=== PATIENT | male | born 1940 | race Caucasian/White ===

== ENCOUNTER 2021-07-07 15:02 | Inpatient (IN) ==
[2021-07-07] MEDS ORDERED: D5% in Water 1,000 ML IVC PRN (17:12)
[2021-07-07] MEDS ORDERED: Dextrose Gel 15 GM/37.5 ML TUBE PO PRN ×2 (17:12)
[2021-07-07] MEDS ORDERED: *HR* Dextrose 50 % in Water (Syg) 50 ML SYRINGE IVP PRN (17:12)
[2021-07-07] MEDS: Insulin LISPRO 300 UNITS/3 ML VIAL SUBQ SCH (23:45)
[2021-07-08 04:33] LABS: Bilirubin,Urine Negative (Negative); Blood,Urine Moderate (Negative); Clarity,Urine Clear (Clear); Color,Urine Yellow (Yellow); Glucose,Urine (UA) 100 mg/dL (Normal); Ketones,Urine Negative (Negative); Leukocyte Esterase,Urine Small (Negative); Nitrite,Urine Positive (Negative); PH,Urine 5.5 pH Units (5.0-8.0); Protein,Urine 30 mg/dL (Neg-Trace); Specific Gravity,Urine >= 1.030 (1.010-1.025); Urobilinogen,Urine Normal (Normal)
[2021-07-08 04:39] LABS: Bacteria,Urine Many per hpf (None-Few); RBC,Urine 0-3 per hpf (0-3); Squamous Epithelial Cell,Urine Few per hpf (None-Few); WBC,Urine 50-100 per hpf (0-3)
[2021-07-08 06:12] LABS: Basophils % 0.2 %; Eosinophils # 0.2 K/mcL (0.0-0.6); Eosinophils % 0.8 %; Hematocrit 32.1 % (37.5-50.1); Hemoglobin 9.9 g/dL (12.9-16.9); Immature Granulocytes % 0.2 % (0-4); Lymphocytes % 82.4 %; Mean Corpuscular HGB Conc 30.8 g/dL (31.6-35.5); Mean Corpuscular Hemoglobin 28.3 pg (28.0-33.3); Mean Corpuscular Volume 91.7 fL (83.0-100.0); Monocytes # 0.2 K/mcL (0.0-1.3); Monocytes % 0.9 %; Neutrophils # 3.5 K/mcL (1.6-8.9); Platelet Count 147 K/mcL (140-400); Red Cell Distribution Width 15.8 % (11.5-14.5); Segmented Neutrophils % 15.5 %; White Blood Count 22.5 K/mcL (4.3-11.1)
[2021-07-08 06:13] LABS: Basophils # 0.1 K/mcL (0.0-0.2); Lymphocytes # 18.5 K/mcL (0.6-4.6)
[2021-07-08 06:28] LABS: BUN/Creatinine Ratio 53 (6-26); Blood Urea Nitrogen 32 mg/dL (8-23); Calcium 8.5 mg/dL (8.6-10.3); Carbon Dioxide 31 mEq/L (23-29); Chloride 101 mEq/L (98-107); Glucose 257 mg/dL (70-105); Osmolality,Calculated 308 (280-300); Sodium 141 mEq/L (136-145); eGFR For African Americans > 60 (> 60); eGFR For Non-African Americans > 60 (> 60)
[2021-07-08] MEDS ORDERED: *HR* Enoxaparin 40 MG/0.4 ML SYRINGE SQ SCH (07:00)
[2021-07-08] MEDS: ZEAXANTHIN PO SCH (07:42)
[2021-07-08] MEDS: GARLIC 1000 MG PO SCH (07:42)
[2021-07-08] MEDS: (Omega-3/Dha/Epa/Fish Oil) PO SCH (07:42)
[2021-07-08] MEDS: [UNRECOGNIZED DRUG - OTHER] PO SCH (07:42)
[2021-07-08] MEDS: ZINC ACETATE 50 MG PO SCH (07:42)
[2021-07-08] MEDS: Insulin LISPRO 300 UNITS/3 ML VIAL SUBQ SCH ×4 (07:45→20:51)
[2021-07-08] MEDS ORDERED: lisinopriL 20 MG TABLET PO SCH (09:00)
[2021-07-08] MEDS ORDERED: Magnesium Oxide 400 MG TABLET PO SCH (09:00)
[2021-07-08] MEDS ORDERED: Aspirin Enteric Coated 81 MG Tablet PO SCH (09:00)
[2021-07-08] MEDS ORDERED: Lactobacillus 1 EACH CAP.SPRINK PO SCH (09:00)
[2021-07-08] MEDS: Cholecalciferol (D-3) 1,000 UNIT (25MCG) TABLET PO SCH (10:01)
[2021-07-08] MEDS: Multivit/Ca/Min/Fe/FA 1 TAB TABLET PO SCH (10:01)
[2021-07-08] MEDS: Vitamin E 200 UNIT (90MG) CAPSULE PO SCH (10:02)
[2021-07-08] MEDS: *HR* SitaGLIPtin 100 MG TABLET PO SCH (10:02)
[2021-07-08] MEDS: Aspirin Enteric Coated 81 MG Tablet PO SCH (10:02)
[2021-07-08] MEDS: Ascorbic Acid 500 MG TABLET PO SCH (10:02)
[2021-07-08] MEDS: Magnesium Oxide 400 MG TABLET PO SCH ×2 (10:03→21:46)
[2021-07-08] MEDS: Apixaban 5 MG TABLET PO SCH ×2 (10:03→21:46)
[2021-07-08] MEDS: Loratadine 10 MG TABLET PO SCH (10:04)
[2021-07-08] MEDS: *HR* Glimepiride 4 MG TABLET PO SCH ×2 (10:04→17:29)
[2021-07-08] MEDS: Lactobacillus 1 EACH CAP.SPRINK PO SCH ×2 (10:04→21:46)
[2021-07-08] MEDS: Fenofibrate 54 MG TABLET PO SCH (10:04)
[2021-07-08] MEDS: *HR* Pioglitazone 15 MG TABLET PO SCH (10:11)
[2021-07-08] MEDS: cefTRIAXone 1,000 MG in 0.9 % Sodium Chloride 10 ML IVP SCH (10:13)
[2021-07-08 12:10] LABS: Estimated Average Glucose 186 mg/dl; Hemoglobin A1C 8.1 %
[2021-07-08] MEDS ORDERED: Melatonin 3 MG TABLET PO ONE (20:50)
[2021-07-09] MEDS ORDERED: Haloperidol Lactate 5 MG/ML VIAL IVP ONE (00:16)
[2021-07-09] MEDS: Aspirin Enteric Coated 81 MG Tablet PO SCH (07:34)
[2021-07-09] MEDS: Ascorbic Acid 500 MG TABLET PO SCH (07:34)
[2021-07-09] MEDS: *HR* Glimepiride 4 MG TABLET PO SCH ×2 (07:34→16:14)
[2021-07-09] MEDS: Vitamin E 200 UNIT (90MG) CAPSULE PO SCH (07:34)
[2021-07-09] MEDS: Cholecalciferol (D-3) 1,000 UNIT (25MCG) TABLET PO SCH (07:34)
[2021-07-09] MEDS: Magnesium Oxide 400 MG TABLET PO SCH ×2 (07:35→20:53)
[2021-07-09] MEDS: Fenofibrate 54 MG TABLET PO SCH (07:35)
[2021-07-09] MEDS: Loratadine 10 MG TABLET PO SCH (07:36)
[2021-07-09] MEDS: Apixaban 5 MG TABLET PO SCH ×2 (07:36→20:52)
[2021-07-09] MEDS: *HR* SitaGLIPtin 100 MG TABLET PO SCH (07:36)
[2021-07-09] MEDS: *HR* Pioglitazone 15 MG TABLET PO SCH (07:36)
[2021-07-09] MEDS: cefTRIAXone 1,000 MG in 0.9 % Sodium Chloride 10 ML IVP SCH (07:37)
[2021-07-09] MEDS: Lactobacillus 1 EACH CAP.SPRINK PO SCH ×2 (07:37→20:51)
[2021-07-09] MEDS: Multivit/Ca/Min/Fe/FA 1 TAB TABLET PO SCH (07:37)
[2021-07-09] MEDS: (Omega-3/Dha/Epa/Fish Oil) PO SCH (07:39)
[2021-07-09] MEDS: GARLIC 1000 MG PO SCH (07:39)
[2021-07-09] MEDS: [UNRECOGNIZED DRUG - OTHER] PO SCH (07:39)
[2021-07-09] MEDS: ZEAXANTHIN PO SCH (07:39)
[2021-07-09] MEDS: ZINC ACETATE 50 MG PO SCH (07:39)
[2021-07-09] MEDS: Insulin LISPRO 300 UNITS/3 ML VIAL SUBQ SCH ×4 (07:52→20:52)
[2021-07-09 11:59] LABS: Basophils % 0.2 %; Eosinophils % 0.6 %; Hematocrit 32.9 % (37.5-50.1); Hemoglobin 10.1 g/dL (12.9-16.9); Immature Granulocytes % 0.3 % (0-4); Lymphocytes # 20.2 K/mcL (0.6-4.6); Lymphocytes % 79.8 %; Mean Corpuscular HGB Conc 30.7 g/dL (31.6-35.5); Mean Corpuscular Hemoglobin 28.1 pg (28.0-33.3); Mean Corpuscular Volume 91.6 fL (83.0-100.0); Mean Platelet Volume 10.5 fL (9.4-12.4); Monocytes # 0.2 K/mcL (0.0-1.3); Monocytes % 0.6 %; Neutrophils # 4.7 K/mcL (1.6-8.9); Platelet Count 159 K/mcL (140-400); Red Blood Count 3.59 M/mcL (4.19-5.50); Red Cell Distribution Width 15.6 % (11.5-14.5); Segmented Neutrophils % 18.5 %; White Blood Count 25.3 K/mcL (4.3-11.1)
[2021-07-09 12:09] LABS: Basophils # 0.1 K/mcL (0.0-0.2); Eosinophils # 0.2 K/mcL (0.0-0.6)
[2021-07-09 12:26] LABS: BUN/Creatinine Ratio 46 (6-26); Blood Urea Nitrogen 33 mg/dL (8-23); Carbon Dioxide 30 mEq/L (23-29); Chloride 99 mEq/L (98-107); Glucose 339 mg/dL (70-105); Osmolality,Calculated 303 (280-300); Potassium 3.8 mEq/L (3.5-5.1); Sodium 136 mEq/L (136-145); eGFR For African Americans > 60 (> 60); eGFR For Non-African Americans > 60 (> 60)
[2021-07-09] MEDS ORDERED: Carbamide Peroxide 150 DROP/15 ML BOTTLE LEFT EAR ONE (13:00)
[2021-07-09] MEDS: Acetaminophen 325 MG TABLET PO PRN (21:57)
[2021-07-10] MEDS ORDERED: *HR* LORazepam 2 MG/ML VIAL IVP ONE ×2 (01:42→21:54)
[2021-07-10] MEDS: *HR* Pioglitazone 15 MG TABLET PO SCH (08:49)
[2021-07-10] MEDS: cefTRIAXone 1,000 MG in 0.9 % Sodium Chloride 10 ML IVP SCH (08:49)
[2021-07-10] MEDS: Vitamin E 200 UNIT (90MG) CAPSULE PO SCH (08:49)
[2021-07-10] MEDS: Aspirin Enteric Coated 81 MG Tablet PO SCH (08:50)
[2021-07-10] MEDS: Acetaminophen 325 MG TABLET PO PRN ×2 (08:50→19:53)
[2021-07-10] MEDS: Loratadine 10 MG TABLET PO SCH (08:50)
[2021-07-10] MEDS: *HR* SitaGLIPtin 100 MG TABLET PO SCH (08:50)
[2021-07-10] MEDS: Apixaban 5 MG TABLET PO SCH ×2 (08:50→19:52)
[2021-07-10] MEDS: Cholecalciferol (D-3) 1,000 UNIT (25MCG) TABLET PO SCH (08:50)
[2021-07-10] MEDS: Fenofibrate 54 MG TABLET PO SCH (08:50)
[2021-07-10] MEDS: *HR* Glimepiride 4 MG TABLET PO SCH ×2 (08:50→16:33)
[2021-07-10] MEDS: Lactobacillus 1 EACH CAP.SPRINK PO SCH ×2 (08:50→19:52)
[2021-07-10] MEDS: Multivit/Ca/Min/Fe/FA 1 TAB TABLET PO SCH (08:50)
[2021-07-10] MEDS: Ascorbic Acid 500 MG TABLET PO SCH (08:51)
[2021-07-10] MEDS: GARLIC 1000 MG PO SCH (08:51)
[2021-07-10] MEDS: ZINC ACETATE 50 MG PO SCH (08:51)
[2021-07-10] MEDS: Magnesium Oxide 400 MG TABLET PO SCH ×2 (08:51→19:53)
[2021-07-10] MEDS: (Omega-3/Dha/Epa/Fish Oil) PO SCH (08:51)
[2021-07-10] MEDS: [UNRECOGNIZED DRUG - OTHER] PO SCH (08:51)
[2021-07-10] MEDS: ZEAXANTHIN PO SCH (08:51)
[2021-07-10] MEDS: Insulin LISPRO 300 UNITS/3 ML VIAL SUBQ SCH ×4 (08:52→19:58)
[2021-07-10] MEDS: Fluticasone Propionate Nasal 50 MCG/SPRAY BOTTLE NS SCH ×2 (12:04→17:19)
[2021-07-10 13:18] LABS: Basophils % 0.2 %; Eosinophils # 0.2 K/mcL (0.0-0.6); Eosinophils % 0.9 %; Hematocrit 33.3 % (37.5-50.1); Hemoglobin 10.4 g/dL (12.9-16.9); Immature Granulocytes % 0.6 % (0-4); Lymphocytes # 14.5 K/mcL (0.6-4.6); Lymphocytes % 76.2 %; Mean Corpuscular HGB Conc 31.2 g/dL (31.6-35.5); Mean Corpuscular Hemoglobin 28.8 pg (28.0-33.3); Mean Corpuscular Volume 92.2 fL (83.0-100.0); Mean Platelet Volume 10.8 fL (9.4-12.4); Monocytes # 0.2 K/mcL (0.0-1.3); Platelet Count 134 K/mcL (140-400); Red Blood Count 3.61 M/mcL (4.19-5.50); Red Cell Distribution Width 15.7 % (11.5-14.5); Segmented Neutrophils % 21.1 %
[2021-07-10 13:37] LABS: BUN/Creatinine Ratio 45 (6-26); Blood Urea Nitrogen 30 mg/dL (8-23); Calcium 9.4 mg/dL (8.6-10.3); Carbon Dioxide 33 mEq/L (23-29); Chloride 98 mEq/L (98-107); Glucose 307 mg/dL (70-105); Osmolality,Calculated 304 (280-300); Potassium 3.8 mEq/L (3.5-5.1); Sodium 138 mEq/L (136-145); eGFR For African Americans > 60 (> 60); eGFR For Non-African Americans > 60 (> 60)
[2021-07-11 05:09] LABS: Basophils % 0.2 %; Eosinophils # 0.2 K/mcL (0.0-0.6); Eosinophils % 1.2 %; Hematocrit 33.2 % (37.5-50.1); Hemoglobin 10.2 g/dL (12.9-16.9); Immature Granulocytes % 0.8 % (0-4); Lymphocytes # 11.9 K/mcL (0.6-4.6); Lymphocytes % 76.3 %; Mean Corpuscular HGB Conc 30.7 g/dL (31.6-35.5); Mean Corpuscular Hemoglobin 28.4 pg (28.0-33.3); Mean Corpuscular Volume 92.5 fL (83.0-100.0); Mean Platelet Volume 11.3 fL (9.4-12.4); Monocytes # 0.2 K/mcL (0.0-1.3); Monocytes % 1.5 %; Neutrophils # 3.1 K/mcL (1.6-8.9); Nucleated Red Blood Cells 0.1 /100 WBC (0); Platelet Count 118 K/mcL (140-400); Red Blood Count 3.59 M/mcL (4.19-5.50); Red Cell Distribution Width 15.5 % (11.5-14.5); White Blood Count 15.6 K/mcL (4.3-11.1)
[2021-07-11 05:14] LABS: Platelet Estimate Slight Decrease (Normal)
[2021-07-11 05:21] LABS: BUN/Creatinine Ratio 43 (6-26); Blood Urea Nitrogen 26 mg/dL (8-23); Calcium 8.8 mg/dL (8.6-10.3); Carbon Dioxide 31 mEq/L (23-29); Chloride 102 mEq/L (98-107); Glucose 234 mg/dL (70-105); Osmolality,Calculated 306 (280-300); Potassium 3.7 mEq/L (3.5-5.1); Sodium 142 mEq/L (136-145); eGFR For African Americans > 60 (> 60); eGFR For Non-African Americans > 60 (> 60)
[2021-07-11] MEDS: Fluticasone Propionate Nasal 50 MCG/SPRAY BOTTLE NS SCH (08:36)
[2021-07-11] MEDS: Fenofibrate 54 MG TABLET PO SCH (08:36)
[2021-07-11] MEDS: Vitamin E 200 UNIT (90MG) CAPSULE PO SCH (08:37)
[2021-07-11] MEDS: *HR* Pioglitazone 15 MG TABLET PO SCH (08:38)
[2021-07-11] MEDS: *HR* SitaGLIPtin 100 MG TABLET PO SCH (08:39)
[2021-07-11] MEDS: *HR* Glimepiride 4 MG TABLET PO SCH ×2 (08:39→16:04)
[2021-07-11] MEDS: Apixaban 5 MG TABLET PO SCH ×2 (08:39→19:30)
[2021-07-11] MEDS: Loratadine 10 MG TABLET PO SCH (08:40)
[2021-07-11] MEDS: Cholecalciferol (D-3) 1,000 UNIT (25MCG) TABLET PO SCH (08:40)
[2021-07-11] MEDS: Ascorbic Acid 500 MG TABLET PO SCH (08:40)
[2021-07-11] MEDS: Magnesium Oxide 400 MG TABLET PO SCH ×2 (08:40→19:52)
[2021-07-11] MEDS: Insulin LISPRO 300 UNITS/3 ML VIAL SUBQ SCH ×4 (08:41→19:54)
[2021-07-11] MEDS: Aspirin Enteric Coated 81 MG Tablet PO SCH (08:41)
[2021-07-11] MEDS: Multivit/Ca/Min/Fe/FA 1 TAB TABLET PO SCH (08:41)
[2021-07-11] MEDS: Lactobacillus 1 EACH CAP.SPRINK PO SCH ×2 (08:41→19:53)
[2021-07-11] MEDS: cefTRIAXone 1,000 MG in 0.9 % Sodium Chloride 10 ML IVP SCH (08:42)
[2021-07-11] MEDS: (Omega-3/Dha/Epa/Fish Oil) PO SCH (08:46)
[2021-07-11] MEDS: [UNRECOGNIZED DRUG - OTHER] PO SCH (08:46)
[2021-07-11] MEDS: GARLIC 1000 MG PO SCH (08:46)
[2021-07-11] MEDS: ZINC ACETATE 50 MG PO SCH (08:46)
[2021-07-11] MEDS: ZEAXANTHIN PO SCH (08:46)
[2021-07-11] MEDS: Acetaminophen 325 MG TABLET PO PRN (20:57)
[2021-07-12] MEDS: Acetaminophen 325 MG TABLET PO PRN ×2 (02:57→20:07)
[2021-07-12 04:42] LABS: Basophils % 0.3 %; Eosinophils # 0.2 K/mcL (0.0-0.6); Eosinophils % 1.6 %; Hematocrit 32.3 % (37.5-50.1); Hemoglobin 9.9 g/dL (12.9-16.9); Immature Granulocytes % 1.4 % (0-4); Lymphocytes # 9.9 K/mcL (0.6-4.6); Mean Corpuscular HGB Conc 30.7 g/dL (31.6-35.5); Mean Corpuscular Hemoglobin 27.9 pg (28.0-33.3); Monocytes # 0.2 K/mcL (0.0-1.3); Monocytes % 1.7 %; Nucleated Red Blood Cells 0.4 /100 WBC (0); Platelet Count 118 K/mcL (140-400); Red Blood Count 3.55 M/mcL (4.19-5.50); Red Cell Distribution Width 15.8 % (11.5-14.5); White Blood Count 13.5 K/mcL (4.3-11.1)
[2021-07-12 04:46] LABS: Platelet Estimate Slight Decrease (Normal)
[2021-07-12] MEDS: Vitamin E 200 UNIT (90MG) CAPSULE PO SCH (09:38)
[2021-07-12] MEDS: Lactobacillus 1 EACH CAP.SPRINK PO SCH ×2 (09:38→20:06)
[2021-07-12] MEDS: Multivit/Ca/Min/Fe/FA 1 TAB TABLET PO SCH (09:38)
[2021-07-12] MEDS: *HR* SitaGLIPtin 100 MG TABLET PO SCH (09:38)
[2021-07-12] MEDS: Fenofibrate 54 MG TABLET PO SCH (09:38)
[2021-07-12] MEDS: Magnesium Oxide 400 MG TABLET PO SCH ×2 (09:38→20:06)
[2021-07-12] MEDS: *HR* Pioglitazone 15 MG TABLET PO SCH (09:39)
[2021-07-12] MEDS: [UNRECOGNIZED DRUG - OTHER] PO SCH (09:39)
[2021-07-12] MEDS: Loratadine 10 MG TABLET PO SCH (09:39)
[2021-07-12] MEDS: (Omega-3/Dha/Epa/Fish Oil) PO SCH (09:39)
[2021-07-12] MEDS: Aspirin Enteric Coated 81 MG Tablet PO SCH (09:39)
[2021-07-12] MEDS: ZEAXANTHIN PO SCH (09:39)
[2021-07-12] MEDS: Fluticasone Propionate Nasal 50 MCG/SPRAY BOTTLE NS SCH (09:39)
[2021-07-12] MEDS: Cholecalciferol (D-3) 1,000 UNIT (25MCG) TABLET PO SCH (09:39)
[2021-07-12] MEDS: Apixaban 5 MG TABLET PO SCH ×2 (09:39→20:06)
[2021-07-12] MEDS: *HR* Glimepiride 4 MG TABLET PO SCH ×2 (09:39→17:25)
[2021-07-12] MEDS: Ascorbic Acid 500 MG TABLET PO SCH (09:39)
[2021-07-12] MEDS: cefTRIAXone 1,000 MG in 0.9 % Sodium Chloride 10 ML IVP SCH (09:40)
[2021-07-12] MEDS: ZINC ACETATE 50 MG PO SCH (09:40)
[2021-07-12] MEDS: Insulin LISPRO 300 UNITS/3 ML VIAL SUBQ SCH ×4 (09:40→20:05)
[2021-07-12] MEDS: GARLIC 1000 MG PO SCH (09:40)
[2021-07-13] MEDS: *HR* SitaGLIPtin 100 MG TABLET PO SCH (08:25)
[2021-07-13] MEDS: Loratadine 10 MG TABLET PO SCH (08:25)
[2021-07-13] MEDS: *HR* Glimepiride 4 MG TABLET PO SCH ×2 (08:25→16:49)
[2021-07-13] MEDS: Lactobacillus 1 EACH CAP.SPRINK PO SCH ×2 (08:25→21:59)
[2021-07-13] MEDS: Ascorbic Acid 500 MG TABLET PO SCH (08:25)
[2021-07-13] MEDS: Vitamin E 200 UNIT (90MG) CAPSULE PO SCH (08:25)
[2021-07-13] MEDS: *HR* Pioglitazone 15 MG TABLET PO SCH (08:26)
[2021-07-13] MEDS: Aspirin Enteric Coated 81 MG Tablet PO SCH (08:26)
[2021-07-13] MEDS: Magnesium Oxide 400 MG TABLET PO SCH ×2 (08:26→22:02)
[2021-07-13] MEDS: Cholecalciferol (D-3) 1,000 UNIT (25MCG) TABLET PO SCH (08:26)
[2021-07-13] MEDS: Apixaban 5 MG TABLET PO SCH ×2 (08:26→22:00)
[2021-07-13] MEDS: Multivit/Ca/Min/Fe/FA 1 TAB TABLET PO SCH (08:26)
[2021-07-13] MEDS: Fenofibrate 54 MG TABLET PO SCH (08:26)
[2021-07-13] MEDS: (Omega-3/Dha/Epa/Fish Oil) PO SCH (08:27)
[2021-07-13] MEDS: [UNRECOGNIZED DRUG - OTHER] PO SCH (08:27)
[2021-07-13] MEDS: ZEAXANTHIN PO SCH (08:27)
[2021-07-13] MEDS: ZINC ACETATE 50 MG PO SCH (08:27)
[2021-07-13] MEDS: GARLIC 1000 MG PO SCH (08:28)
[2021-07-13] MEDS: cefTRIAXone 1,000 MG in 0.9 % Sodium Chloride 10 ML IVP SCH (08:28)
[2021-07-13] MEDS: Insulin LISPRO 300 UNITS/3 ML VIAL SUBQ SCH ×3 (08:34→16:14)
[2021-07-13] MEDS: Fluticasone Propionate Nasal 50 MCG/SPRAY BOTTLE NS SCH (08:34)
[2021-07-13] MEDS: Melatonin 3 MG TABLET PO SCH (21:59)
[2021-07-13] MEDS: Acetaminophen 325 MG TABLET PO PRN (22:02)
[2021-07-14] MEDS: Insulin LISPRO 300 UNITS/3 ML VIAL SUBQ SCH ×5 (04:13→19:38)
[2021-07-14] MEDS: cefTRIAXone 1,000 MG in 0.9 % Sodium Chloride 10 ML IVP SCH (08:49)
[2021-07-14] MEDS: Apixaban 5 MG TABLET PO SCH ×2 (08:52→19:34)
[2021-07-14] MEDS: Ascorbic Acid 500 MG TABLET PO SCH (08:52)
[2021-07-14] MEDS: Loratadine 10 MG TABLET PO SCH (08:53)
[2021-07-14] MEDS: Cholecalciferol (D-3) 1,000 UNIT (25MCG) TABLET PO SCH (08:53)
[2021-07-14] MEDS: Magnesium Oxide 400 MG TABLET PO SCH ×2 (08:53→19:33)
[2021-07-14] MEDS: Multivit/Ca/Min/Fe/FA 1 TAB TABLET PO SCH (08:53)
[2021-07-14] MEDS: Fenofibrate 54 MG TABLET PO SCH (08:53)
[2021-07-14] MEDS: Vitamin E 200 UNIT (90MG) CAPSULE PO SCH (08:53)
[2021-07-14] MEDS: *HR* Glimepiride 4 MG TABLET PO SCH ×2 (08:53→17:19)
[2021-07-14] MEDS: Lactobacillus 1 EACH CAP.SPRINK PO SCH ×2 (08:53→19:34)
[2021-07-14] MEDS: Aspirin Enteric Coated 81 MG Tablet PO SCH (08:53)
[2021-07-14] MEDS: *HR* SitaGLIPtin 100 MG TABLET PO SCH (08:53)
[2021-07-14] MEDS: *HR* Pioglitazone 15 MG TABLET PO SCH (08:53)
[2021-07-14] MEDS: GARLIC 1000 MG PO SCH (08:54)
[2021-07-14] MEDS: ZEAXANTHIN PO SCH (08:54)
[2021-07-14] MEDS: ZINC ACETATE 50 MG PO SCH (08:54)
[2021-07-14] MEDS: [UNRECOGNIZED DRUG - OTHER] PO SCH (08:54)
[2021-07-14] MEDS: (Omega-3/Dha/Epa/Fish Oil) PO SCH (08:54)
[2021-07-14] MEDS: Fluticasone Propionate Nasal 50 MCG/SPRAY BOTTLE NS SCH (08:57)
[2021-07-14] MEDS: Melatonin 3 MG TABLET PO SCH (19:34)
[2021-07-14] MEDS: Acetaminophen 325 MG TABLET PO PRN (21:23)
[2021-07-15 06:00] LABS: Basophils # 0.1 K/mcL (0.0-0.2); Basophils % 0.4 %; Eosinophils # 0.3 K/mcL (0.0-0.6); Eosinophils % 1.8 %; Hematocrit 34.6 % (37.5-50.1); Hemoglobin 10.4 g/dL (12.9-16.9); Lymphocytes % 73.9 %; Mean Corpuscular HGB Conc 30.1 g/dL (31.6-35.5); Mean Corpuscular Hemoglobin 27.8 pg (28.0-33.3); Mean Corpuscular Volume 92.5 fL (83.0-100.0); Mean Platelet Volume 11.2 fL (9.4-12.4); Monocytes # 0.2 K/mcL (0.0-1.3); Monocytes % 1.6 %; Platelet Count 172 K/mcL (140-400); Red Blood Count 3.74 M/mcL (4.19-5.50); Red Cell Distribution Width 16.3 % (11.5-14.5); Segmented Neutrophils % 20.3 %; White Blood Count 14.9 K/mcL (4.3-11.1)
[2021-07-15 06:20] LABS: BUN/Creatinine Ratio 46 (6-26); Blood Urea Nitrogen 33 mg/dL (8-23); Calcium 8.8 mg/dL (8.6-10.3); Carbon Dioxide 30 mEq/L (23-29); Chloride 102 mEq/L (98-107); Glucose 182 mg/dL (70-105); Osmolality,Calculated 302 (280-300); Potassium 3.9 mEq/L (3.5-5.1); Sodium 140 mEq/L (136-145); eGFR For African Americans > 60 (> 60); eGFR For Non-African Americans > 60 (> 60)
[2021-07-15 06:22] LABS: Anisocytosis 1+ (Not Present); Platelet Estimate Normal (Normal); Poikilocytosis 1+ (Not Present)
[2021-07-15] MEDS: Fenofibrate 54 MG TABLET PO SCH (08:48)
[2021-07-15] MEDS: Vitamin E 200 UNIT (90MG) CAPSULE PO SCH (08:48)
[2021-07-15] MEDS: *HR* SitaGLIPtin 100 MG TABLET PO SCH (08:48)
[2021-07-15] MEDS: *HR* Glimepiride 4 MG TABLET PO SCH ×2 (08:49→16:55)
[2021-07-15] MEDS: Aspirin Enteric Coated 81 MG Tablet PO SCH (08:49)
[2021-07-15] MEDS: Apixaban 5 MG TABLET PO SCH ×2 (08:49→20:54)
[2021-07-15] MEDS: Zinc Sulfate 220 MG CAPSULE PO SCH (08:49)
[2021-07-15] MEDS: *HR* Pioglitazone 15 MG TABLET PO SCH (08:49)
[2021-07-15] MEDS: Multivit/Ca/Min/Fe/FA 1 TAB TABLET PO SCH (08:49)
[2021-07-15] MEDS: Lactobacillus 1 EACH CAP.SPRINK PO SCH ×2 (08:49→20:54)
[2021-07-15] MEDS: Magnesium Oxide 400 MG TABLET PO SCH ×2 (08:49→20:55)
[2021-07-15] MEDS: Cholecalciferol (D-3) 1,000 UNIT (25MCG) TABLET PO SCH (08:49)
[2021-07-15] MEDS: cefTRIAXone 1,000 MG in 0.9 % Sodium Chloride 10 ML IVP SCH (08:49)
[2021-07-15] MEDS: Ascorbic Acid 500 MG TABLET PO SCH (08:49)
[2021-07-15] MEDS: Insulin LISPRO 300 UNITS/3 ML VIAL SUBQ SCH ×4 (08:50→20:57)
[2021-07-15] MEDS: ZYRTEC 10 MG PO SCH (08:50)
[2021-07-15] MEDS: Fluticasone Propionate Nasal 50 MCG/SPRAY BOTTLE NS SCH (08:50)
[2021-07-15] MEDS: Melatonin 3 MG TABLET PO SCH (20:55)
[2021-07-15] MEDS: QUEtiapine Fumarate 25 MG TABLET PO SCH (20:56)
[2021-07-16] MEDS: Zinc Sulfate 220 MG CAPSULE PO SCH (09:14)
[2021-07-16] MEDS: Insulin LISPRO 300 UNITS/3 ML VIAL SUBQ SCH ×4 (09:14→19:54)
[2021-07-16] MEDS: Fenofibrate 54 MG TABLET PO SCH (09:14)
[2021-07-16] MEDS: *HR* Pioglitazone 15 MG TABLET PO SCH (09:14)
[2021-07-16] MEDS: Ascorbic Acid 500 MG TABLET PO SCH (09:14)
[2021-07-16] MEDS: Vitamin E 200 UNIT (90MG) CAPSULE PO SCH (09:14)
[2021-07-16] MEDS: Lactobacillus 1 EACH CAP.SPRINK PO SCH ×2 (09:14→20:03)
[2021-07-16] MEDS: Cholecalciferol (D-3) 1,000 UNIT (25MCG) TABLET PO SCH (09:14)
[2021-07-16] MEDS: Magnesium Oxide 400 MG TABLET PO SCH ×2 (09:15→20:03)
[2021-07-16] MEDS: *HR* SitaGLIPtin 100 MG TABLET PO SCH (09:15)
[2021-07-16] MEDS: Aspirin Enteric Coated 81 MG Tablet PO SCH (09:15)
[2021-07-16] MEDS: Apixaban 5 MG TABLET PO SCH ×2 (09:15→20:04)
[2021-07-16] MEDS: *HR* Glimepiride 4 MG TABLET PO SCH ×2 (09:15→17:14)
[2021-07-16] MEDS: Multivit/Ca/Min/Fe/FA 1 TAB TABLET PO SCH (09:15)
[2021-07-16] MEDS: Fluticasone Propionate Nasal 50 MCG/SPRAY BOTTLE NS SCH (09:19)
[2021-07-16] MEDS: ZYRTEC 10 MG PO SCH (09:19)
[2021-07-16] MEDS: QUEtiapine Fumarate 25 MG TABLET PO SCH (20:01)
[2021-07-16] MEDS: Melatonin 3 MG TABLET PO SCH (20:04)
[2021-07-17] MEDS: Acetaminophen 325 MG TABLET PO PRN ×2 (02:57→19:46)
[2021-07-17] MEDS: *HR* Pioglitazone 15 MG TABLET PO SCH (09:16)
[2021-07-17] MEDS: Zinc Sulfate 220 MG CAPSULE PO SCH (09:16)
[2021-07-17] MEDS: Multivit/Ca/Min/Fe/FA 1 TAB TABLET PO SCH (09:16)
[2021-07-17] MEDS: *HR* Glimepiride 4 MG TABLET PO SCH ×2 (09:16→17:00)
[2021-07-17] MEDS: Cholecalciferol (D-3) 1,000 UNIT (25MCG) TABLET PO SCH (09:16)
[2021-07-17] MEDS: Vitamin E 200 UNIT (90MG) CAPSULE PO SCH (09:16)
[2021-07-17] MEDS: Aspirin Enteric Coated 81 MG Tablet PO SCH (09:16)
[2021-07-17] MEDS: *HR* SitaGLIPtin 100 MG TABLET PO SCH (09:17)
[2021-07-17] MEDS: Magnesium Oxide 400 MG TABLET PO SCH ×2 (09:17→19:47)
[2021-07-17] MEDS: Fenofibrate 54 MG TABLET PO SCH (09:17)
[2021-07-17] MEDS: Fluticasone Propionate Nasal 50 MCG/SPRAY BOTTLE NS SCH (09:17)
[2021-07-17] MEDS: Apixaban 5 MG TABLET PO SCH ×2 (09:17→19:47)
[2021-07-17] MEDS: Ascorbic Acid 500 MG TABLET PO SCH (09:17)
[2021-07-17] MEDS: Insulin LISPRO 300 UNITS/3 ML VIAL SUBQ SCH ×4 (09:20→19:50)
[2021-07-17] MEDS: Lactobacillus 1 EACH CAP.SPRINK PO SCH ×2 (09:20→20:26)
[2021-07-17] MEDS: ZYRTEC 10 MG PO SCH (09:21)
[2021-07-17] MEDS: Melatonin 3 MG TABLET PO SCH (19:46)
[2021-07-17] MEDS: QUEtiapine Fumarate 25 MG TABLET PO SCH (19:48)
[2021-07-17] MEDS: Benzonatate 100 MG CAPSULE PO PRN (23:34)
[2021-07-18 08:32] LABS: Basophils # 0.1 K/mcL (0.0-0.2); Basophils % 0.4 %; Eosinophils # 0.3 K/mcL (0.0-0.6); Hematocrit 34.4 % (37.5-50.1); Hemoglobin 10.6 g/dL (12.9-16.9); Immature Granulocytes % 2.8 % (0-4); Lymphocytes # 10.2 K/mcL (0.6-4.6); Lymphocytes % 70.3 %; Mean Corpuscular HGB Conc 30.8 g/dL (31.6-35.5); Mean Corpuscular Hemoglobin 28.5 pg (28.0-33.3); Mean Corpuscular Volume 92.5 fL (83.0-100.0); Mean Platelet Volume 10.7 fL (9.4-12.4); Monocytes # 0.3 K/mcL (0.0-1.3); Monocytes % 1.9 %; Neutrophils # 3.3 K/mcL (1.6-8.9); Nucleated Red Blood Cells 0.1 /100 WBC (0); Platelet Count 232 K/mcL (140-400); Red Blood Count 3.72 M/mcL (4.19-5.50); Red Cell Distribution Width 16.7 % (11.5-14.5); Segmented Neutrophils % 22.6 %; White Blood Count 14.5 K/mcL (4.3-11.1)
[2021-07-18 08:41] LABS: BUN/Creatinine Ratio 47 (6-26); Blood Urea Nitrogen 36 mg/dL (8-23); Carbon Dioxide 30 mEq/L (23-29); Chloride 102 mEq/L (98-107); Glucose 203 mg/dL (70-105); Osmolality,Calculated 300 (280-300); Potassium 4.1 mEq/L (3.5-5.1); Sodium 138 mEq/L (136-145); eGFR For African Americans > 60 (> 60); eGFR For Non-African Americans > 60 (> 60)
[2021-07-18] MEDS: Insulin LISPRO 300 UNITS/3 ML VIAL SUBQ SCH ×4 (08:44→20:51)
[2021-07-18] MEDS: Aspirin Enteric Coated 81 MG Tablet PO SCH (08:46)
[2021-07-18] MEDS: Benzonatate 100 MG CAPSULE PO PRN ×2 (08:46→20:59)
[2021-07-18] MEDS: Vitamin E 200 UNIT (90MG) CAPSULE PO SCH (08:46)
[2021-07-18] MEDS: Ascorbic Acid 500 MG TABLET PO SCH (08:47)
[2021-07-18] MEDS: Fenofibrate 54 MG TABLET PO SCH (08:48)
[2021-07-18] MEDS: Multivit/Ca/Min/Fe/FA 1 TAB TABLET PO SCH (08:48)
[2021-07-18] MEDS: *HR* Pioglitazone 15 MG TABLET PO SCH (08:48)
[2021-07-18] MEDS: Cholecalciferol (D-3) 1,000 UNIT (25MCG) TABLET PO SCH (08:48)
[2021-07-18] MEDS: Lactobacillus 1 EACH CAP.SPRINK PO SCH ×2 (08:49→20:57)
[2021-07-18] MEDS: Zinc Sulfate 220 MG CAPSULE PO SCH (08:49)
[2021-07-18] MEDS: Magnesium Oxide 400 MG TABLET PO SCH ×2 (08:49→20:59)
[2021-07-18] MEDS: Apixaban 5 MG TABLET PO SCH ×2 (08:50→20:57)
[2021-07-18] MEDS: *HR* SitaGLIPtin 100 MG TABLET PO SCH (08:50)
[2021-07-18] MEDS: *HR* Glimepiride 4 MG TABLET PO SCH ×2 (08:51→16:44)
[2021-07-18] MEDS: ZYRTEC 10 MG PO SCH (08:51)
[2021-07-18] MEDS: Fluticasone Propionate Nasal 50 MCG/SPRAY BOTTLE NS SCH (08:52)
[2021-07-18 09:24] LABS: Anisocytosis 1+ (Not Present); Smudge Cells Present (Not Present)
[2021-07-18] MEDS: Melatonin 3 MG TABLET PO SCH (20:57)
[2021-07-18] MEDS: QUEtiapine Fumarate 25 MG TABLET PO SCH (20:59)
[2021-07-18] MEDS: Acetaminophen 325 MG TABLET PO PRN (20:59)
[2021-07-19] MEDS: Insulin LISPRO 300 UNITS/3 ML VIAL SUBQ SCH ×4 (08:37→21:40)
[2021-07-19] MEDS: Zinc Sulfate 220 MG CAPSULE PO SCH (08:38)
[2021-07-19] MEDS: Fluticasone Propionate Nasal 50 MCG/SPRAY BOTTLE NS SCH (08:38)
[2021-07-19] MEDS: Vitamin E 200 UNIT (90MG) CAPSULE PO SCH (08:38)
[2021-07-19] MEDS: Magnesium Oxide 400 MG TABLET PO SCH ×2 (08:39→21:37)
[2021-07-19] MEDS: Aspirin Enteric Coated 81 MG Tablet PO SCH (08:39)
[2021-07-19] MEDS: Fenofibrate 54 MG TABLET PO SCH (08:39)
[2021-07-19] MEDS: Lactobacillus 1 EACH CAP.SPRINK PO SCH ×2 (08:39→21:37)
[2021-07-19] MEDS: Ascorbic Acid 500 MG TABLET PO SCH (08:39)
[2021-07-19] MEDS: *HR* Pioglitazone 15 MG TABLET PO SCH (08:39)
[2021-07-19] MEDS: *HR* Glimepiride 4 MG TABLET PO SCH ×2 (08:39→16:57)
[2021-07-19] MEDS: Cholecalciferol (D-3) 1,000 UNIT (25MCG) TABLET PO SCH (08:39)
[2021-07-19] MEDS: Apixaban 5 MG TABLET PO SCH ×2 (08:39→21:37)
[2021-07-19] MEDS: *HR* SitaGLIPtin 100 MG TABLET PO SCH (08:39)
[2021-07-19] MEDS: Multivit/Ca/Min/Fe/FA 1 TAB TABLET PO SCH (08:39)
[2021-07-19] MEDS: Benzonatate 100 MG CAPSULE PO PRN ×2 (08:40→21:38)
[2021-07-19] MEDS: ZYRTEC 10 MG PO SCH (08:40)
[2021-07-19 14:06] LABS: Bilirubin,Urine Negative (Negative); Blood,Urine Negative (Negative); Clarity,Urine Clear (Clear); Color,Urine Yellow (Yellow); Glucose,Urine (UA) Normal (Normal); Ketones,Urine Negative (Negative); Leukocyte Esterase,Urine Trace (Negative); Nitrite,Urine Negative (Negative); PH,Urine 5.5 pH Units (5.0-8.0); Protein,Urine Negative (Neg-Trace); Specific Gravity,Urine >= 1.030 (1.010-1.025); Urobilinogen,Urine Normal (Normal)
[2021-07-19 14:22] LABS: Bacteria,Urine Moderate per hpf (None-Few); Budding Yeast,Urine Few per hpf (None Seen); Calcium Oxalate Crystals,Urine Present per hpf; Hyaline Casts,Urine Few per lpf (None Seen); Mucus,Urine Many per lpf (None-Few); Squamous Epithelial Cell,Urine Few per hpf (None-Few)
[2021-07-19] MEDS: QUEtiapine Fumarate 25 MG TABLET PO SCH (21:37)
[2021-07-19] MEDS: Melatonin 3 MG TABLET PO SCH (21:37)
[2021-07-19] MEDS: Acetaminophen 325 MG TABLET PO PRN (21:38)
[2021-07-20 04:56] LABS: Hematocrit 29.9 % (37.5-50.1); Hemoglobin 9.2 g/dL (12.9-16.9); Mean Corpuscular HGB Conc 30.8 g/dL (31.6-35.5); Mean Corpuscular Hemoglobin 28.2 pg (28.0-33.3); Mean Corpuscular Volume 91.7 fL (83.0-100.0); Mean Platelet Volume 10.9 fL (9.4-12.4); Platelet Count 201 K/mcL (140-400); Red Blood Count 3.26 M/mcL (4.19-5.50); Red Cell Distribution Width 16.9 % (11.5-14.5); White Blood Count 10.3 K/mcL (4.3-11.1)
[2021-07-20 05:19] LABS: Alanine Aminotransferase 9 Units/L (7-52); Albumin/Globulin Ratio 2.5 (1.1-2.2); Alkaline Phosphatase 63 Units/L (34-104); Aspartate Amino Transferase 9 Units/L (13-39); BUN/Creatinine Ratio 39 (6-26); Bilirubin,Total 0.4 mg/dL (0.3-1.0); Blood Urea Nitrogen 37 mg/dL (8-23); Calcium 8.5 mg/dL (8.6-10.3); Carbon Dioxide 30 mEq/L (23-29); Chloride 104 mEq/L (98-107); Globulin 1.2 g/dL (2.4-3.5); Glucose 183 mg/dL (70-105); Magnesium 1.8 mg/dL (1.6-2.6); Osmolality,Calculated 301 (280-300); Sodium 139 mEq/L (136-145); Total Protein 4.2 g/dL (6.4-8.9); eGFR For African Americans > 60 (> 60); eGFR For Non-African Americans > 60 (> 60)
[2021-07-20] MEDS: *HR* Pioglitazone 15 MG TABLET PO SCH (08:35)
[2021-07-20] MEDS: Fenofibrate 54 MG TABLET PO SCH (08:36)
[2021-07-20] MEDS: Vitamin E 200 UNIT (90MG) CAPSULE PO SCH (08:36)
[2021-07-20] MEDS: Aspirin Enteric Coated 81 MG Tablet PO SCH (08:36)
[2021-07-20] MEDS: Doxycycline 100 MG CAPSULE PO SCH ×2 (08:36→21:20)
[2021-07-20] MEDS: Cholecalciferol (D-3) 1,000 UNIT (25MCG) TABLET PO SCH (08:36)
[2021-07-20] MEDS: Ascorbic Acid 500 MG TABLET PO SCH (08:36)
[2021-07-20] MEDS: Multivit/Ca/Min/Fe/FA 1 TAB TABLET PO SCH (08:36)
[2021-07-20] MEDS: Zinc Sulfate 220 MG CAPSULE PO SCH (08:36)
[2021-07-20] MEDS: *HR* SitaGLIPtin 100 MG TABLET PO SCH (08:36)
[2021-07-20] MEDS: Lactobacillus 1 EACH CAP.SPRINK PO SCH ×2 (08:36→21:20)
[2021-07-20] MEDS: *HR* Glimepiride 4 MG TABLET PO SCH ×2 (08:36→16:32)
[2021-07-20] MEDS: Apixaban 5 MG TABLET PO SCH ×2 (08:37→21:21)
[2021-07-20] MEDS: Fluticasone Propionate Nasal 50 MCG/SPRAY BOTTLE NS SCH (08:37)
[2021-07-20] MEDS: Magnesium Oxide 400 MG TABLET PO SCH ×2 (08:37→21:20)
[2021-07-20] MEDS: Insulin LISPRO 300 UNITS/3 ML VIAL SUBQ SCH ×4 (08:37→21:22)
[2021-07-20] MEDS: ZYRTEC 10 MG PO SCH (08:38)
[2021-07-20] MEDS: Carbamide Peroxide 150 DROP/15 ML BOTTLE LEFT EAR SCH ×2 (11:17→21:22)
[2021-07-20] MEDS: Carbamide Peroxide 150 DROP/15 ML BOTTLE RIGHT EAR SCH ×2 (11:17→21:22)
[2021-07-20] MEDS: predniSONE 20 MG TABLET PO SCH (16:32)
[2021-07-20 17:23] LABS: Ferritin 55 ng/mL (20-250)
[2021-07-20 17:48] LABS: C-Reactive Protein < 5 mg/L (Less than 10)
[2021-07-20] MEDS: QUEtiapine Fumarate 25 MG TABLET PO SCH (21:19)
[2021-07-20] MEDS: Benzonatate 100 MG CAPSULE PO PRN (21:20)
[2021-07-20] MEDS: Melatonin 3 MG TABLET PO SCH (21:21)
[2021-07-20] MEDS: Acetaminophen 325 MG TABLET PO PRN (23:22)
[2021-07-21] MEDS: predniSONE 20 MG TABLET PO SCH (09:56)
[2021-07-21] MEDS: Lactobacillus 1 EACH CAP.SPRINK PO SCH ×2 (09:56→20:21)
[2021-07-21] MEDS: Apixaban 5 MG TABLET PO SCH ×2 (09:56→20:21)
[2021-07-21] MEDS: Fenofibrate 54 MG TABLET PO SCH (09:57)
[2021-07-21] MEDS: *HR* SitaGLIPtin 100 MG TABLET PO SCH (09:57)
[2021-07-21] MEDS: Doxycycline 100 MG CAPSULE PO SCH ×2 (09:57→20:21)
[2021-07-21] MEDS: Cholecalciferol (D-3) 1,000 UNIT (25MCG) TABLET PO SCH (09:57)
[2021-07-21] MEDS: *HR* Pioglitazone 15 MG TABLET PO SCH (09:57)
[2021-07-21] MEDS: Aspirin Enteric Coated 81 MG Tablet PO SCH (09:58)
[2021-07-21] MEDS: Zinc Sulfate 220 MG CAPSULE PO SCH (09:58)
[2021-07-21] MEDS: *HR* Glimepiride 4 MG TABLET PO SCH ×2 (09:58→17:26)
[2021-07-21] MEDS: Ascorbic Acid 500 MG TABLET PO SCH (09:58)
[2021-07-21] MEDS: Vitamin E 200 UNIT (90MG) CAPSULE PO SCH (09:58)
[2021-07-21] MEDS: Multivit/Ca/Min/Fe/FA 1 TAB TABLET PO SCH (09:58)
[2021-07-21] MEDS: Magnesium Oxide 400 MG TABLET PO SCH ×2 (09:58→20:22)
[2021-07-21] MEDS: ZYRTEC 10 MG PO SCH (09:59)
[2021-07-21] MEDS: Fluticasone Propionate Nasal 50 MCG/SPRAY BOTTLE NS SCH (09:59)
[2021-07-21] MEDS: Carbamide Peroxide 150 DROP/15 ML BOTTLE LEFT EAR SCH ×2 (10:01→20:32)
[2021-07-21] MEDS: Carbamide Peroxide 150 DROP/15 ML BOTTLE RIGHT EAR SCH ×2 (10:01→20:35)
[2021-07-21] MEDS: Insulin LISPRO 300 UNITS/3 ML VIAL SUBQ SCH ×4 (10:02→20:33)
[2021-07-21] MEDS: Acetaminophen 325 MG TABLET PO PRN ×2 (10:24→20:35)
[2021-07-21 19:04] VITALS: RESP 17
[2021-07-21] MEDS: Melatonin 3 MG TABLET PO SCH (20:22)
[2021-07-21] MEDS: QUEtiapine Fumarate 25 MG TABLET PO SCH (20:23)
[2021-07-22 07:47] VITALS: BP 119/73; PULSE 78; TEMP 98; O2SAT 98
[2021-07-22] MEDS: Zinc Sulfate 220 MG CAPSULE PO SCH (09:24)
[2021-07-22] MEDS: Ascorbic Acid 500 MG TABLET PO SCH (09:24)
[2021-07-22] MEDS: Cholecalciferol (D-3) 1,000 UNIT (25MCG) TABLET PO SCH (09:24)
[2021-07-22] MEDS: Aspirin Enteric Coated 81 MG Tablet PO SCH (09:25)
[2021-07-22] MEDS: *HR* Glimepiride 4 MG TABLET PO SCH (09:25)
[2021-07-22] MEDS: Multivit/Ca/Min/Fe/FA 1 TAB TABLET PO SCH (09:25)
[2021-07-22] MEDS: Lactobacillus 1 EACH CAP.SPRINK PO SCH (09:25)
[2021-07-22] MEDS: Doxycycline 100 MG CAPSULE PO SCH (09:25)
[2021-07-22] MEDS: Magnesium Oxide 400 MG TABLET PO SCH (09:25)
[2021-07-22] MEDS: Fenofibrate 54 MG TABLET PO SCH (09:25)
[2021-07-22] MEDS: *HR* SitaGLIPtin 100 MG TABLET PO SCH (09:25)
[2021-07-22] MEDS: predniSONE 20 MG TABLET PO SCH (09:25)
[2021-07-22] MEDS: *HR* Pioglitazone 15 MG TABLET PO SCH (09:25)
[2021-07-22] MEDS: Apixaban 5 MG TABLET PO SCH (09:25)
[2021-07-22] MEDS: Fluticasone Propionate Nasal 50 MCG/SPRAY BOTTLE NS SCH (09:26)
[2021-07-22] MEDS: Insulin LISPRO 300 UNITS/3 ML VIAL SUBQ SCH ×2 (09:26→12:46)
[2021-07-22] MEDS: Vitamin E 200 UNIT (90MG) CAPSULE PO SCH (09:26)
[2021-07-22] MEDS: ZYRTEC 10 MG PO SCH (09:26)
[2021-07-22] MEDS: Carbamide Peroxide 150 DROP/15 ML BOTTLE RIGHT EAR SCH (09:27)
[2021-07-22] MEDS: Carbamide Peroxide 150 DROP/15 ML BOTTLE LEFT EAR SCH (09:27)
== END 2021-07-22 12:50 | disposition home health service (06) ==
LOC: INPGRE 20:01
PROVIDERS: ADMIT Family Medicine; ATTEND Family Medicine